=== PATIENT | male | born 1995 | race Caucasian/White ===

== ENCOUNTER 2019-05-27 13:56 | Emergency (ER) | payer MEDICAID, OTHER ==
[~2019-05-27] VITALS: Ht 180.3 cm; Wt 100.0 kg
[2019-05-27 13:59] VITALS: BP 141/93
[2019-05-27] MEDS ORDERED: LIDOcaine 5% patch TP SCH (15:00)
[2019-05-27] MEDS: ketorolac tromethamine 15mg/ml inj. IM ONE ×2 (15:00→15:55)
[2019-05-27] MEDS ORDERED: HYDROcodone/acetaminophen 5mg/325mg tablet PO ONE (15:00)
== END 2019-05-27 16:19 | disposition home or self-care (01) ==
LOC: ER 13:56
DX: R07.81 Pleurodynia (principal)
CPT/HCPCS: 71111; 99283; J1885

== ENCOUNTER → 2020-09-06 | Emergency (ER) | payer MEDICAID, OTHER ==
[~2020-09-06] VITALS: Ht 177.8 cm; Wt 81.0 kg
[~2020-09-06] MED LIST: IBUP-1984 PO; ketorolac tromethamine 15mg/ml inj. IM ONE
[2020-09-06 11:59] VITALS: BP 159/84
== END | disposition home or self-care (01) ==
LOC: ER 11:52
DX: S52.592A Other fractures of lower end of left radius, initial encounter for closed fracture (principal); Z72.89 Other problems related to lifestyle; Z79.899 Other long term (current) drug therapy; W10.8XXA Fall (on) (from) other stairs and steps, initial encounter; Y93.89 Activity, other specified; Y92.89 Other specified places as the place of occurrence of the external cause; Y99.8 Other external cause status
CPT/HCPCS: 29125; 73110; 73130; 99284

== ENCOUNTER 2021-02-19 10:31 | Emergency (ER) | payer MEDICAID ==
[~2021-02-19] VITALS: Ht 180.3 cm; Wt 81.0 kg
[2021-02-19 11:08] VITALS: BP 110/72
== END 2021-02-19 13:43 | disposition left against medical advice (07) ==
LOC: ER 10:32
DX: R07.0 Pain in throat (principal); Z53.21 Procedure and treatment not carried out due to patient leaving prior to being seen by health care provider

== ENCOUNTER 2021-12-23 16:02 | Emergency (ER) | payer MEDICAID, OTHER ==
[~2021-12-23] VITALS: Ht 180.3 cm; Wt 76.3 kg
[2021-12-23 18:38] VITALS: BP 115/73
--- NOTE | 2021-12-23 19:11 | NUR ---
PT REFUSED TETANUS SHOT
== END 2021-12-23 19:28 | disposition home or self-care (01) ==
LOC: ER 16:04
DX: S60.419A Abrasion of unspecified finger, initial encounter (principal); Z72.89 Other problems related to lifestyle; W45.8XXA Other foreign body or object entering through skin, initial encounter; Y93.89 Activity, other specified; Y92.89 Other specified places as the place of occurrence of the external cause; Y99.8 Other external cause status
CPT/HCPCS: 99281; A6222; J7030; A6449